=== PATIENT | female | born 1960 | race Caucasian/White ===

== ENCOUNTER 2023-05-03 15:08 | Outpatient (CLI) | payer MEDICARE, SELFPAY ==
[2023-05-03 20:14] LABS: Basophils Absolute Auto 0.1 K/mm3 (0.0-0.1); Basophils Percent Auto 1.1 % (0.2-1.2); Eosinophils Absolute Auto 0.2 K/mm3 (0-0.3); Eosinophils Percent Auto 2.7 % (0-4.4); Hematocrit 40.7 % (37.0-47.0); Hemoglobin 13.1 g/dL (12.0-15.0); Immature Granulocyte Absolute 0.02 K/mm3 (0.00-0.031); Immature Granulocyte Percent A 0.2 % (0-0.5); Lymphocytes Absolute Auto 3.07 K/mm3 (0.9-3.2); Mean Corpuscular HGB Conc 32.2 g/dl (32-36); Mean Corpuscular Hemoglobin 29.4 pg (26-34); Mean Corpuscular Volume 91.3 fl (80-100); Mean Platelet Volume 10.7 fl (7.4-10.4); Monocytes Absolute Auto 0.5 K/mm3 (0.1-0.6); Monocytes Percent Auto 5.8 % (2.6-8.5); Neutrophils Absolute Auto 4.6 K/mm3 (1.3-6.7); Neutrophils Percent Auto 54.2 % (45.5-73.1); Platelet Count Result 273 k/mm3 (150-375); Red Blood Count 4.46 M/mm3 (4.2-5.4); Red Cell Distribution Width 13.7 % (11.5-14.5); White Blood Count 8.5 K/mm3 (4.5-10.0)
[2023-05-03 20:35] LABS: Alanine Aminotransferase 34 U/L (6-35); Albumin Level 4.6 g/dL (3.5-5.1); Alkaline Phosphatase 81 U/L (38-126); Anion Gap 8 mmol/L (8-16); Aspartate Amino Transferase 42 U/L (14-36); Bilirubin,Total 0.4 mg/dL (0.2-1.3); Blood Urea Nitrogen 21 mg/dL (7-17); Calcium 9.6 mg/dL (8.4-10.2); Carbon Dioxide 25 mmol/L (22-30); Chloride 105 mmol/L (98-107); Cholesterol 238 mg/dL (0-200); Estimated Glomerular Filt Rate 56; Glucose 93 mg/dL (65-110); HDL Direct 68 mg/dL; Magnesium 2.4 mg/dL (1.6-2.3); Potassium 3.8 mmol/L (3.4-5.0); Sodium 138 mmol/L (137-145); Triglycerides 105 mg/dL (<150)
[2023-05-03 20:45] LABS: LDL Cholesterol Direct 123 mg/dL
[2023-05-03 23:26] LABS: Hemoglobin A1C 5.2 % (<5.7)
== END 2023-05-03 15:09 | disposition home or self-care (01) ==
PROVIDERS: PCP Nurse Practitioner Adult Health; Visit Provider Nurse Practitioner Adult Health
DX: R73.9 Hyperglycemia, unspecified (principal); I10 Essential (primary) hypertension
CPT/HCPCS: 36415; 80053; 80061; 83036; 83735; 84443; 85025

== ENCOUNTER 2023-11-01 14:06 | Outpatient (CLI) | payer MEDICARE, SELFPAY ==
[2023-11-01 18:24] LABS: Basophils Absolute Auto 0.1 K/mm3 (0.0-0.1); Basophils Percent Auto 1.1 % (0.2-1.2); Eosinophils Absolute Auto 0.4 K/mm3 (0-0.3); Eosinophils Percent Auto 3.6 % (0-4.4); Hematocrit 43.2 % (37.0-47.0); Hemoglobin 13.7 g/dL (12.0-15.0); Immature Granulocyte Absolute 0.02 K/mm3 (0.00-0.031); Immature Granulocyte Percent A 0.2 % (0-0.5); Lymphocytes Percent Auto 32.9 % (18.3-44.2); Mean Corpuscular HGB Conc 31.7 g/dl (32-36); Mean Corpuscular Hemoglobin 29.1 pg (26-34); Mean Corpuscular Volume 91.7 fl (80-100); Mean Platelet Volume 10.7 fl (7.4-10.4); Monocytes Absolute Auto 0.7 K/mm3 (0.1-0.6); Monocytes Percent Auto 7.3 % (2.6-8.5); Neutrophils Absolute Auto 5.4 K/mm3 (1.3-6.7); Neutrophils Percent Auto 54.9 % (45.5-73.1); Platelet Count Result 285 k/mm3 (150-375); Red Blood Count 4.71 M/mm3 (4.2-5.4); Red Cell Distribution Width 13.7 % (11.5-14.5); White Blood Count 9.7 K/mm3 (4.5-10.0)
[2023-11-01 18:40] LABS: Hemoglobin A1C 5.3 % (<5.7)
[2023-11-01 19:09] LABS: Appearance Urine Clear (Clear); Bilirubin Urine Negative (Negative); Blood Urine Negative (Negative); Color Urine Dark Yellow (Yellow); Glucose Urine UA Negative (Negative); Ketones Urine Negative (Negative); Leukocyte Esterase Ur Negative LEU/UL (Negative); Nitrate Urine Negative (Negative); Protein Urine Negative (Negative); Specific Grav Ur 1.023 (1.001-1.035); Urobilinogen Urine 0.2 mg/dL (<2.0); pH Urine 5.5 (5.0-9.0)
[2023-11-01 19:11] LABS: Add Urine Microscopic? NO
[2023-11-01 19:27] LABS: Alanine Aminotransferase 80 U/L (6-35); Albumin Level 4.8 g/dL (3.5-5.1); Alkaline Phosphatase 105 U/L (38-126); Anion Gap 9 mmol/L (4-12); Aspartate Amino Transferase 63 U/L (14-36); Bilirubin,Total 0.4 mg/dL (0.2-1.3); Blood Urea Nitrogen 22 mg/dL (7-17); Calcium 10.1 mg/dL (8.4-10.2); Carbon Dioxide 25 mmol/L (22-30); Chloride 105 mmol/L (98-107); Cholesterol 241 mg/dL (0-200); Estimated Glomerular Filt Rate 46; Glucose 90 mg/dL (65-110); HDL Direct 57 mg/dL; Potassium 3.9 mmol/L (3.4-5.0); Sodium 139 mmol/L (137-145); Triglycerides 203 mg/dL (<150)
[2023-11-01 19:38] LABS: LDL Cholesterol Direct 151 mg/dL
== END 2023-11-01 14:07 | disposition home or self-care (01) ==
PROVIDERS: PCP Nurse Practitioner Adult Health; Visit Provider Nurse Practitioner Adult Health
DX: E78.5 Hyperlipidemia, unspecified (principal); R35.0 Frequency of micturition; R73.9 Hyperglycemia, unspecified
CPT/HCPCS: 36415; 80053; 80061; 81003; 83036; 84443; 85025; 87086

== ENCOUNTER 2025-01-22 15:18 | Outpatient (CLI) | payer MEDICARE, SELFPAY ==
--- OUTSIDE RECORDS SUMMARY | 2025-01-22 15:21 | XMS_ITS | Clinical Summary ---
Author Organization [facility] Address [address] [address] Phone Care Team Providers Care Solar Photovoltaic Systems Engineer Name Role Phone Deidre Huerta DAMIAN, ANILA Primary Care Provider Matt Vazquez MD Unavailable Boo Tellez MD Unavailable Allergies Active Allergy Reactions Criticality Noted Date Comments Codeine Vomiting 03/13/2022 Lisinopril Other (see Comments) 03/13/2022 Cough Morphine Vomiting 03/13/2022 Medications albuterol 108 (90 Base) MCG/ACT Aerosol Solution take 2 Puffs by inhalation every 4 hours as needed. Active [place]-3 Fatty Acids (FISH OIL PO) Take 2,000 mg by mouth 2 times daily. Active levothyroxine (SYNTHROID) 50 MCG Tablet Take 50 mcg by mouth daily. Active metoprolol Succinate (TOPROL-XL) 50 MG TABLET SR 24 HR Take 50 mg by mouth daily. Active Multiple Vitamins-Minera ls (PRESERVISION AREDS 2 PO) Take by mouth. Act cirilo POTASSIUM CHLORIDE PO Take 20 mg by mouth. Active furosemide (LASIX) 40 MG Tablet Take 40 mg by mouth daily. Active aspirin 81 MG Chewable Tablet Take 81 mg by mouth daily. Active Cholecalciferol (VITAMIN D3 PO) Take by mouth. Active FOLIC ACID PO Take by mouth. A ctive Flaxseed, Linseed, (FLAX SEED OIL PO) Take 1,000 mg by mouth. Active Cyanocobalamin (VITAMIN B12 PO) Take by mouth. B12 DROPS Active MELATONIN PO Take by mouth. Ac tive Active Problems No known active problems Immunizations Immunization Administration Dates Next Due Influenza Vaccine 06/25/2016 Influenza Vaccine,unspecified Formulation 2015,04/08/2015 Family History Medical History Relation Name Comments Diabetes Child Heart Disease Father Cancer Maternal Aunt Heart Disease Mother Cancer Sister Relation Name Status Comments Child Father Maternal Aunt Mother Sister Social History Tobacco Use Types Packs/Day Years Used Date Smoking Tobacco: Every Day Smokeless Tobacco: Never Alcohol Use Standard Drinks/Week Comments Not Currently 0 (1 standard drink = 0.6 oz pur e alcohol) Sexually Active Control Partners Comments Not Currently Comments No Sex and Gender Information Value Date Recorded Sex Assigned at Not on file Legal Sex Female 11:09 PM CDT Gender Identity Not on file Sexual Orientation Not on file Last Filed Vital Signs Vital Sign Reading Time Taken Comments Blood Pressure 130/78 03/13/2022 1:09 PM CDT Pulse 82 03/13/2022 1:09 PM CDT Temperature - - Respiratory Rate 20 03/13/2022 1:09 PM CDT Oxygen Saturation 98% 03/13/2022 1:09 PM CDT Inhaled Oxygen Concentration - - Weight 78.5 kg (173 lb) 03/13/2022 1:09 PM CDT Height 167.6 cm (5' 6) 03/13/2022 1:09 PM CDT Body Mass Index 27.92 03/13/2022 1:09 PM CDT Plan of Treatment Health Maintenance Due Date Last Done Comments Hepatitis C Virus (HCV) Screening 1961 TdaP Immunization 1961 Cologuard 2006 Colonoscopy 2006 Colorectal Cancer Screening 2006 Immunochemical Fecal Occult Blood 2006 Pneumococcal Immunization (5 0+ years) (1 of 1 - PCV) 2011 Zoster Immunization (1 of 2) 2011 SARS-COV-2 Immunization (3 - season) 2024 11/07/2020, 10/17/2020 Influenza Immunization (#1) 2025 122 08/2015, 06/17/2016, 04/08/2015 Respiratory Syncytial Virus (RSV) Immunization (Adult) (1 - 1-dose 75+ series) 02/13/2036 Hepatitis B Immunization Aged Out No longer eligible based on patient's age to complete this topic Human Papillomavirus (HPV) Immunization Aged Out No longer eligible b ased on patient's age to complete this topic Meningococcal Immunization (ACWY) Aged Out No longer eligible b ased on patient's age to complete this topic Rotavirus Immunization Aged Out No lo nger eligible based on patient's age to complete this topic Insurance MEDICARE C [employer]ET[employer] Care Teams Solar Photovoltaic Systems Engineer Relationship Specialty Start Date End Date Deidre Huerta, GREENSTONE POLISHER OPERATOR, ANIMAL RESCUER [address] [place] [address] PCP - General Family Medicine 02/20/22 Matt Vazquez MD [address] [place] [address] Consulting Physician Interventional Cardiology 03/13/22 Boo Tellez MD [address] [place] [address] Cardiovascular Disease - Cardiology 03/13/22
--- OUTSIDE RECORDS SUMMARY | 2025-01-22 15:21 | XMS_ITS | Clinical Summary ---
Author Organization [facility] Address [address] [place] [address] Care Team Providers Care Paper Products Inspector Name Role Phone Jamie Ivory MD Primary Care Provider [phone] Allergies Active Allergy Reactions Criticality Noted Date Comments Amlodipine Vision changes Medium 10/27/2023 Clonidine Fatigue Low 10/27/2023 Codeine Stomach upset Reaction: GI UPSET, Carvedilol Fatigue Low 10/27/2023 Hydralazine Palpitations Low 10/27/2023 Hydrochlorothiazide Chills Low 09/10/2022 Metoprolol Fatigue Low 10/27/2023 Morphine Stomach upset Reaction: GI UPSET, Medications om 2-rva-xex-B12-FA -B6-phytost 500 mg-500 mcg -1 mg-12.5 mg capsule Take by mouth Active cyanocobalamin/f olic acid (VITAMIN X48-MMOPX ACID) 1,000-400 mcg tablet, sublingual Place under the tongue Active aspirin 81 mg enteric coated tablet Take 1 tablet (81 mg total) by mouth daily Active melatonin 5 mg tablet Take 1 tablet (5 mg total) by mouth daily Active cholecalciferol, vitamin D3, (cholecalciferol , vit D3,,bulk,) 100,000 unit/gram powder Take by mouth Active vitamin D3-vitamin K2, MK4, (K2 Plus D3) 1,000-100 unit-mcg tablet daily Acti ve spironolactone (ALDACTONE) 25 mg tablet TAKE 1 TABLET (25 MG TOTAL) BY MOUTH DAILY. 90 tablet 3 09/15/2024 Active losartan (COZAAR) 50 mg tablet TAKE 1 TABLET BY MOUTH TWICE A DAY 180 tablet 3 12/11/2024 Active Active Problems Problem Noted Date Diagnosed Date PAD (peripheral artery disease) 09/10/2022 Chest pain 08/13/2022 Overview (08/13/2022): Added automatically from request for surgery [id number] Essential hypertension 12/22/2021 Hyperlipidemia 12/22/2021 Subclavian artery stenosis 12/22/2021 Fatigue 12/22/2021 Generalized pain 07/27/2012 Overview (10/10/2016): Body aches Surgical History Surgery Date Site/Laterality Comments PARTIAL HYSTERECTOMY partial hysterectomy OTHER SURGICAL HISTORY removal of growth around spinal cord OTHER SURGICAL HISTORY fusion in neck of 3 discs. HYSTERECTOMY Medical History Medical History Date Comments Hx Other Medical Headache, migra ine Hypertension Hypertension Chronic obstructive pulmonary disease (HCC) COPD Hyperlipidemia Hyperlipidemia Malignant neoplasm of cervix (HCC) Cancer, cervical Disorder of thyroid Thyroid dise ase Smoking Family History Medical History Relation Name Comments Cancer Father Cancer; Other Mother heart failure.; Cancer Other Family history of Cancer; Breast cancer Neg Hx Ovarian cancer Neg Hx Thyroid cancer Neg Hx Relation Name Status Comments Father Mother Other Social History Tobacco Use Types Packs/Day Years Used Date Smoking Tobacco: Every Day Cigarettes Smokeless Tobacco: Never Alcohol Use Standard Drinks/Week Comments No 0 (1 standard drink = 0.6 oz pur e alcohol) AUDIT-C Answer Date Recorded Frequency of Alcohol Consumption Never 12/21/2018 Average Number of Drinks Not on file 019 Frequency of Binge Drinking Never 12/03 PHQ-2 Answer Date Recorded PHQ-2 Score 6 02/23/2019 Personal Safety Answer Date Recorded Getting School Help Needed Denies 06/16 Comments No Sex and Gender Information Value Date Recorded Sex Assigned at Not on file Legal Sex Female 12:44 AM CHUMMER Gender Identity Not on file Sexual Orientation Not on file Obstetrics History Para Term AB IAB SAB Ectopic Multiple Livin g Live Births 2 1 1 Date Outcome GA Total Labor Labor/2nd/3rd Weight Sex Type Anes PTL Nita A1 A5 Name Clin Term Last Filed Vital Signs Vital Sign Reading Time Taken Comments Blood Pressure 152/92 05/03/2024 1:06 PM CDT Pulse 69 05/03/2024 1:06 PM CDT Temperature 36.1 C (97 F) 09/10/2022 3:58 PM CHUMMER Respiratory Rate 18 05/03/2024 1:06 PM CDT Oxygen Saturation 97% 09/10/2022 6:22 PM CHUMMER Inhaled Oxygen Concentration - - Weight 88 kg (194 lb) 05/03/2024 1:06 PM CDT Height 167.6 cm (5' 6) 05/03/2024 1:06 PM CDT Body Mass Index 31.31 05/03/2024 1:06 PM CDT Plan of Treatment Health Maintenance Due Date Last Done Comments Colon Cancer Screening-Colonoscopy 1961 Hepatitis C Screening 1961 DTaP/Tdap/Td Vaccine (1 - Tdap) 02/13/1972 Hepatitis B Screening 1979 Pneumococcal vaccine <65 (1 of 2 - PCV) 02/13/1980 Zoster Vaccine (1 of 2) 2011 Depression Screening 01/20/2020 01/19/2019, 01/20/20 19 Regular Well Visit/Exam 18-64 01/20/2020 01/19/2019 Covid-19 Vaccine (3 - 2023-2 5 season) 2024 11/07/2020, 10/17/2020 Lung Cancer Screening 05/22/2024 05/22/2023 Breast Cancer Screening-Mammogram 06/22/2024 023, 01/09/2019 Influenza Vaccine (Season Ended) 2025 04/08/2022, 06/25/2016, 06/17/2016, Additional history exists Cervical Cancer Screening Discontinued 01/19/2019 Medical Devices Implanted Type Area Mechanic'S Assistant Device Identifier Shelf Expiration Date Model / Serial / Lot [employer] (P) Angio-Seal Vip 6fr Closere Device [id number] - [id number] Implanted:Qty: 1 on 09/10/2022 by Matt Vazquez MD at [facility] Other - see comments [employer]) 05/04/2023 [id number] / / [id number] Procedures Procedure Name Priority Date/Time Associated Diagnosis Comments SCREENING MAMMOGRAM BILATERAL W HUSSAIN Schedule Routine, Read Routine (OP Routine) 06/22/2023 1:02 PM CHUMMER Encounter for screening mammogram for malignant neoplasm of breast CT LUNG CANCER SCREENING Schedule Routine, Read Routine (OP Routine) 05/22/2023 1:14 PM CHUMMER Personal history of nicotine dependence IMAGING PAP AND HPV MRNA E6/E7 Routine 01/19/2019 2:24 PM CDT Well woman exam from Last 3 Months or Most Recently Relevant to Health Maintenance Results * Screening Mammogram Bilateral W Hussain (06/22/2023 1:02 PM CHUMMER) Anatomical Region Laterality Modality Breast Bilateral Mammography 06/22/2023 3:42 PM CHUMMER Impressions 06/22/2023 3:42 PM CHUMMER There is no mammographic evidence of malignancy. A 1 year screening mammogram is recommended. BI-RADS: 1 - Negative. The patient has been or will be contacted. The patient will be entered into a reminder system with a target due date of 1 year for her next mammogram. Electronically signed by: Nidhi Berg M.D. Narrative 06/22/2023 3:42 PM CHUMMER EXAMINATION: SCREENING MAMMOGRAM BILATERAL W HUSSAIN ORDERING HEALTHCARE PROVIDER: CASSIE BARNES HISTORY: Routine screening mammography. COMPARISON: 01/09/2019, 05/12/2011 TECHNIQUE: CC and MLO views of the bilateral breasts were obtained with digital technique using breast tomosynthesis with C view. Computer aided detection was utilized. FINDINGS: DENSITY: There are scattered fibroglandular elements in the bilateral breasts. BREASTS: There are no suspicious masses, suspicious calcifications, or other suspicious findings in either breast. There has been no suspicious interval change. Cassie Barnes NP IMG MAMMO PROCEDURES Final Res ult * CT Lung Cancer Screening (05/22/2023 1:14 PM CHUMMER) Anatomical Region Laterality Modality Chest N/A Computed Tomogra phy 05/24/2023 8:37 AM CHUMMER Narrative 05/24/2023 8:48 AM CHUMMER EXAM DESCRIPTION: CT LUNG CANCER SCREENING REASON FOR STUDY: Screening CT of the chest in a former smoker with a 45 pack year smoking history. Additional history: None. TECHNIQUE: Low dose CT scan of the chest was performed without intravenous contrast using helical scanning technique. The exam extends from the lung apices through the lung bases. Automatic exposure control was used as a dose optimization technique. NOTE: This study was performed for the specific purposes of lung cancer screening and is not an alternative to diagnostic chest CT. RADIATION DOSE: CT dose index volume (CTDIvol) = 1.71 mGy COMPARISON: 11/28/2021 FINDINGS: SMOKING RELATED LUNG DISEASE: There are mild emphysematous changes of lungs with scattered mild subsegmental atelectasis and scarring. There is biapical pleural thickening and scarring. There is no definite evidence of a pneumothorax. The central airways are grossly patent. There is no definite evidence of focal consolidation or pleural effusion. There is a calcified granuloma noted in the right upper lobe. LUNG NODULES: There is a stable 0.5 cm fissural nodule along the confluence of the right major and minor fissures (axial image 127). There is a stable 0.2 cm pulmonary nodule in the central left upper lobe (axial image 67). CORONARY ARTERY CALCIFICATION: Present. OTHER: The heart size is stable. There is no definite evidence of a pericardial effusion. Are vvfb-hp-aqizvgng atherosclerotic changes of coronary vessels. There are mild atherosclerotic changes thoracic aorta. There is no definite unenhanced CT evidence of mediastinal, hilar, or axillary lymphadenopathy. There is a small hiatal hernia. The bilateral adrenal glands are grossly stable and unremarkable. There is cholelithiasis. There is mild osteopenia. There is a minimal to mild levoscoliotic curvature of the spine with degenerative changes. IMPRESSION: Redemonstration of a couple of small pulmonary nodules with the largest measuring 0.5 cm along the confluence of the right major and minor fissures. No definite evidence of a new suspicious pulmonary nodule. Mild emphysematous changes of lungs with scattered mild subsegmental atelectasis and scarring. Cholelithiasis. Lung-RADS category 2: Benign appearance or behavior. Recommendation: Low dose Screening CT of chest in 12 months. THIS IS AN ELECTRONICALLY VERIFIED FINAL REPORT 05/24/2023 8:48 AM - Electronically signed by Mika Flores D.O. PS: PS Report ID: [id number] Reading Location: [id number] Procedure Note Mika Flores, DO - 05/24/2023 EXAM DESCRIPTION: CT LUNG CANCER SCREENING REASON FOR STUDY: Screening CT of the chest in a former smoker with a 45 pack year smoking history. Additional history: None. TECHNIQUE: Low dose CT scan of the chest was performed without intravenous contrast using helical scanning technique. The exam extends from the lung apices through the lung bases. Automatic exposure control was used as adose optimization technique. NOTE: This study was performed for the specific purposes of lung cancer screening and is not an alternative to diagnostic chest CT. RADIATION DOSE: CT dose index volume (CTDIvol) = 1.71 mGy COMPARISON: 11/28/2021 FINDINGS: SMOKING RELATED LUNG DISEASE: There are mild emphysematous changes oflungs with scattered mild subsegmental atelectasis and scarring. There isbiapical pleural thickening and scarring. There is no definite evidence of a pneumothorax. The central airways are grossly patent. There is nodefinite evidence of focal consolidation or pleural effusion. There is a calcified granuloma noted in the right upper lobe. LUNG NODULES: There is a stable 0.5 cm fissural nodule along theconfluence of the right major and minor fissures (axial image 127). There is astable 0.2 cm pulmonary nodule in the central left upper lobe (axial image 67). CORONARY ARTERY CALCIFICATION: Present. OTHER: The heart size is stable. There is no definite evidence of a pericardial effusion. Are liri-fx-iwjhljcz atherosclerotic changes of coronary vessels. There are mild atherosclerotic changes thoracicaorta. There is no definite unenhanced CT evidence of mediastinal, hilar, oraxillary lymphadenopathy. There is a small hiatal hernia. The bilateral adrenal glands are grossly stable and unremarkable. There is cholelithiasis. There is mild osteopenia. There is a minimal to mild levoscolioticcurvature of the spine with degenerative changes. IMPRESSION: Redemonstration of a couple of small pulmonary nodules with the largest measuring 0.5 cm along the confluence of the right major and minorfissures. No definite evidence of a new suspicious pulmonary nodule. Mild emphysematous changes of lungs with scattered mild subsegmental atelectasis and scarring. Cholelithiasis. Lung-RADS category 2: Benign appearance or behavior. Recommendation: Low dose Screening CT of chest in 12 months. THIS IS AN ELECTRONICALLY VERIFIED FINAL REPORT 05/24/2023 8:48 AM - Electronically signed by Mika Flores D.O. PS: JENN Report ID: [id number] Reading Location: [place] [address] Cassie Barnes ESTATE CONSERVATOR IMG CT PROCEDURES Final Result * Imaging Pap and HPV mRNA E6/E7 (01/19/2019 2:24 PM CDT) CLINICAL INFORMATION: [facility] [place] Comment:Information not prov ided LMP [facility] [place] Comment:INFORMATION NOT PROV IDED Previous Pap [facility] [place] Comment:INFORMATION NOT PROV IDED Prev. Bx [facility] [place] Comment:INFORMATION NOT PROV IDED SOURCE: Vagina [facility] [place] Pap, specimen adequacy [facility] Comment:SATISFACTORY FOR MONICO LUATION HPV interp [facility] [place] Comment:Negative for intraep ithelial lesion or malignancy. COMMENTS [facility] - Comment: This Pap test has been evaluated with computer assisted technology. Manager Editorial [facility] - Comment: DDS, CT(ASCP) CT screening location: [place] [address] [place] [address] [facility] - Comment: EXPLANATORY NOTE: The Pap is a screening test for cervical cancer. It is not a diagnostic test and is subject to false negative and false positive results. It is most reliable when a satisfactory sample, regularly obtained, is submitted with relevant clinical findings and history, and when the Pap result is evaluated along with historic and current clinical information. Human papillomavirus RNA, High Risk E6/E7 Not Detected Not Detected [facility] [place] Comment: This test was performed using the APTIMA HPV Assay ([employer] This assay detects E6/E7 viral messenger RNA (mRNA) from 14 high-risk HPV types (16,18,31,33,35,39,45,51,52,56,58,59,66,68). The analytical performance characteristics of this assay have been determined by [facility]. The modifications have not been cleared or approved by the FDA. This assay has been validated pursuant to the CLIA regulations and is used for clinical purposes. Vaginal 01/19/2019 2:24 PM CDT 01/20/2019 9:12 AM CDT Narrative Resulting Agency Comment Performing Organization Information: Site ID: [id number] Name: [facility] Address: [address] [address] Director: Dontae Bocanegra D.O., MPH Site ID: [id number] Name: [facility] Address: [address] [address] Director: Jevon Singer us Paola Jensen ESTATE CONSERVATOR LAB PATHOLOGY ORDERABLES Final Result [facility] [place] [facility] [place] from Last 3 Months or Most Recently Relevant to Health Maintenance Insurance [facility] [employer] [facility] [employer] [facility] Advance Directives For more information, please contact: [phone] * Full Code (Latest Code Status on File) Date Activated Date Inactivated Comments 09/10/2022 3:15 PM 09/10/2022 10:58 PM Care Teams Paper Products Inspector Relationship Specialty Start Date End Date Jamie Ivory MD PCP - General Family Practice 04/28/23
--- OUTSIDE RECORDS SUMMARY | 2025-01-22 15:21 | XMS_ITS | Referral Summary ---
Author Organization [facility] Address [address] [place] [address] Care Team Providers Care Keyboard Specialist Name Role Phone Jamie Ivory MD Primary Care Provider [phone] Allergies Active Allergy Reactions Criticality Noted Date Comments Amlodipine Vision changes Medium 10/27/2023 Clonidine Fatigue Low 10/27/2023 Codeine Stomach upset Reaction: GI UPSET, Carvedilol Fatigue Low 10/27/2023 Hydralazine Palpitations Low 10/27/2023 Hydrochlorothiazide Chills Low 09/10/2022 Metoprolol Fatigue Low 10/27/2023 Morphine Stomach upset Reaction: GI UPSET, Medications om 7-mbp-pmx-B12-FA -B6-phytost 500 mg-500 mcg -1 mg-12.5 mg capsule Take by mouth Active cyanocobalamin/f olic acid (VITAMIN L09-[id number] ACID) 1,000-400 mcg tablet, sublingual Place under [...] (08/13/2022): Added automatically from request for surgery [id number] Essential hypertension 12/22/2021 Hyperlipidemia 12/22/2021 Subclavian artery stenosis 12/22/2021 Fatigue 12/22/2021 Generalized pain 07/27/2012 Overview (10/10/2016): Body aches Social History Tobacco Use Types Packs/Day Years [...] on file Legal Sex Female 12:44 AM [employer] Gender Identity Not on file Sexual Orientation Not on file Last Filed Vital Signs Vital Sign Reading Time Taken Comments Blood Pressure 152/92 05/03/2024 1:06 PM CDT Pulse 69 05/03/2024 1:06 PM CDT Temperature 36.1 C (97 F) 09/10/2022 3:58 PM [employer] Respiratory Rate 18 05/03/2024 1:06 PM CDT Oxygen Saturation 97% 09/10/2022 6:22 PM [employer] Inhaled Oxygen Concentration - - Weight 88 kg (194 lb) 05/03/2024 1:06 PM CDT Height 167.6 cm (5' 6) 05/03/2024 1:06 PM CDT Body Mass Index 31.31 05/03/2024 1:06 PM CDT Plan of Treatment Not on file Medical Devices Implanted Type Area Fishing Vessel Deckhand Device Identifier Shelf Expiration Date Model / Serial / Lot [employer]IB[employer] Apparels Sandra Angio-Seal Vip 6fr Closere Device [id number] - [id number] Implanted:Qty: 1 on 09/10/2022 by Matt Vazquez MD at [facility] Other - see comments [employer] 05/04/2023 [id number] / / [id number] Procedures Procedure Name Priority Date/Time Associated Diagnosis Comments SCREENING MAMMOGRAM BILATERAL W HUSSAIN Schedule Routine, Read Routine (OP Routine) 06/22/2023 1:02 PM [employer] Encounter for screening mammogram for malignant neoplasm of breast CT LUNG CANCER SCREENING Schedule Routine, Read Routine (OP Routine) 05/22/2023 1:14 PM [employer] Personal history of nicotine dependence IMAGING PAP AND HPV MRNA E6/E7 Routine 01/19/2019 2:24 PM CDT Well woman exam from Last 3 Months or Most Recently Relevant to Health Maintenance Results * Screening Mammogram Bilateral W Hussain (06/22/2023 1:02 PM [employer]) Anatomical Region Laterality Modality Breast Bilateral Mammography 06/22/2023 3:42 PM [employer] Impressions 06/22/2023 3:42 PM [employer] There is no mammographic evidence of malignancy. A 1 year screening mammogram is recommended. BI-RADS: 1 - Negative. The patient has been or will be contacted. The patient will be entered into a reminder system with a target due date of 1 year for her next mammogram. Electronically signed by: Nidhi Berg M.D. Narrative 06/22/2023 3:42 PM [employer] EXAMINATION: SCREENING MAMMOGRAM BILATERAL W HUSSAIN ORDERING [...] There has been no suspicious interval change. us Cassie aBrnes [employer] IMG MAMMO PROCEDURES Final Res ult * CT Lung Cancer Screening (05/22/2023 1:14 PM [employer]) Anatomical Region Laterality Modality Chest N/A Computed Tomogra phy 05/24/2023 8:37 AM [employer] Narrative 05/24/2023 8:48 AM [employer] EXAM DESCRIPTION: CT LUNG CANCER SCREENING REASON [...] definite evidence of a pericardial effusion. Are vntt-bc-wdsskgft atherosclerotic changes of coronary vessels. There are [...] Mika Flores D.O. PS: PS Report ID: [id number] Reading Location: [place] [address] Procedure Note Mika Flores, DO - 05/24/2023 [...] definite evidence of a pericardial effusion. Are mljk-db-gqaahqvr atherosclerotic changes of coronary vessels. There are [...] Mika Flores D.O. PS: PS Report ID: [id number] Reading Location: [place] [address] Cassie Barnes NP IMG [address] PROCEDURES Final Result * Imaging Pap and HPV mRNA E6/E7 (01/19/2019 2:24 PM CDT) CLINICAL INFORMATION: [facility] - Comment:Information not prov ided LMP [facility] - Comment:INFORMATION NOT PROV IDED Previous Pap [facility] - Comment:INFORMATION NOT PROV IDED Prev. Bx [facility] - Comment:INFORMATION NOT PROV IDED SOURCE: Vagina [facility] - Pap, specimen adequacy [facility] - Comment:SATISFACTORY FOR MONICO LUATION HPV interp [facility] - Comment:Negative for intraep ithelial lesion or malignancy. COMMENTS [facility] - Comment: This Pap test has been evaluated with computer assisted technology. [employer] [facility] Comment: DDS, CT(ASCP) CT screening location: [place] [address] [place] [address] Comment [facility] - Comment: EXPLANATORY NOTE: The Pap [...] High Risk E6/E7 Not Detected Not Detected [facility] - [place] Comment: This test was performed using the APTIMA HPV Assay ([employer] This assay detects E6/E7 viral messenger RNA (mRNA) from 14 high-risk HPV types (16,18,31,33,35,39,45,51,52,56,58,59,66,68). The analytical performance characteristics of this assay have been determined by [facility]. The modifications have not been cleared or approved by the FDA. This assay has been validated pursuant to the CLIA regulations and is used for clinical purposes. Vaginal 01/19/2019 2:24 PM CDT 01/20/2019 9:12 AM CDT Narrative Resulting Agency Comment Performing Organization Information: Site ID: [id number] [facility]: [facility] Address: [address] [address] Director: Dontae Bocanegra D.O., MPH Site ID: [id number] [facility] Address: [address] [address] Director: Jevon Singer Paola Jensen NP LAB PATHOLOGY ORDERABLES Final Result [facility] - [place] [facility] [place] from Last 3 Months or Most Recently Relevant to Health Maintenance Insurance [facility] AD[facility]ANT Advance Directives For more information, please contact: [phone] * Full Code (Latest Code Status on File) Date Activated Date Inactivated Comments 09/10/2022 3:15 PM 09/10/2022 10:58 PM Care Teams Keyboard Specialist Relationship Specialty Start Date End Date Jamie Ivory MD PCP - General Family Practice 04/28/23
[2025-01-22 20:02] LABS: Alanine Aminotransferase 24 U/L (6-35); Albumin Level 4.4 g/dL (3.5-5.1); Alkaline Phosphatase 83 U/L (38-126); Anion Gap 10 mmol/L (4-12); Aspartate Amino Transferase 61 U/L (14-36); Bilirubin,Total 0.3 mg/dL (0.2-1.3); Blood Urea Nitrogen 18 mg/dL (7-17); Calcium 10.0 mg/dL (8.4-10.2); Carbon Dioxide 24 mmol/L (22-30); Chloride 106 mmol/L (98-107); Cholesterol 210 mg/dL (0-200); Estimated Glomerular Filt Rate 42; Glucose 84 mg/dL (65-110); HDL Direct 40 mg/dL; Potassium 4.5 mmol/L (3.4-5.0); Sodium 140 mmol/L (137-145); Total Protein 7.7 g/dL (6.3-8.2); Triglycerides 232 mg/dL (<150)
[2025-01-22 20:09] LABS: Hemoglobin A1C 5.9 % (<5.7)
[2025-01-22 20:50] LABS: Thyroid Stimulating Hormone 2.710 uIU/mL (0.465-4.680)
== END 2025-01-22 15:19 | disposition home or self-care (01) ==
PROVIDERS: PCP Nurse Practitioner Adult Health; Visit Provider Nurse Practitioner Adult Health
DX: E78.5 Hyperlipidemia, unspecified (principal); I10 Essential (primary) hypertension; R73.9 Hyperglycemia, unspecified
CPT/HCPCS: 36415; 80053; 80061; 83036; 84443